=== PATIENT | female | born 1955 | race Caucasian/White ===

== ENCOUNTER → 2023-11-27 11:57 | Outpatient (REF) | payer MEDICARE, SELFPAY | LOC: RCS 11:57 | PROVIDERS: ATTENDING PHYSICIAN Internal Medicine Cardiovascular Disease; FAMILY PHYSICIAN Internal Medicine | DX: I35.0 Nonrheumatic aortic (valve) stenosis (principal) | CPT/HCPCS: 93306 ==

== ENCOUNTER 2023-12-30 08:30 | Emergency (ER) | payer MEDICARE, SELFPAY ==
[2023-12-30 08:37] VITALS: BP 147/80
--- NOTE | 2023-12-30 08:53 | ED.GENMED ---
History of Present Illness
General
Chief Complaint: Abdominal Symptoms
Source: patient
Exam Limitations: none
Time Seen by Provider: 12/30/23 08:41
History of Present Illness
History of Present Illness:
68-year-old female presents with nausea vomiting abdominal pain and diarrhea starting yesterday worsening throughout the night. Last several episodes of loose stool she noted were bloody with red blood and mucus. No recent antibiotics. She has a
history of colitis. This feels somewhat similar. She denies chest pain but shortness of breath. No urinary symptoms. No known sick contacts. Recently has seen her GI doctor and cardiology. She has a history of rjp-[id number]-ijiuccxxc diabetes
Past History
Past History
ED Past Medical History: HTN, Hypercholesterolemia, NIDDM and Hypothyroidism
Social History
Tobacco: Non-smoker
Alcohol: None
Drug: None
Personal:
Living: with family
Employment: Retired
Phy Exam
Physical Exam
Physical Exam:
General: Well-appearing female no acute respiratory distress
HEENT: Normocephalic atraumatic
Heart: Regular rate and rhythm no murmurs
Lungs: Clear no wheeze
Abdomen soft mildly tender to the lower abdomen
Extremities: No cyanosis
Course
Orders/Labs/Results
Orders:
Orders
12/30/23 08:51
STOOL [C difficile Antigen & Toxins] Urgent
QING Source: Feces/Stool
Specimen Description:
Stool Culture Urgent
QING Source: Feces/Stool
Specimen Description:
0.9% Sodium Chloride 1000 ml [Nss] 1,000 ml IV BOLUS
Ondansetron Injectable [Zofran] 4 mg IV NOW STA
12/30/23 08:52
CT Abd/pelvis W Iv Cont Urgent
Comment:
Reason For Exam: lower abodminal pain, diarrhea
12/30/23 09:00
Complete Blood Count/With Diff Urgent
Comprehensive Metabolic Panel Urgent
Lipase Urgent
Abnormal Lab Results
12/30/23
09:00
Absolute Neuts (auto) 7.3 H 10^3/uL
(1.4-6.5)
Absolute Monos (auto) 0.7 H 10^3/uL
(0.1-0.6)
Lymphocytes % 19.6 L %
(20.5-51.1)
BUN 24 H mg/dl
(7-17)
12/30/23 09:00
12/30/23 09:00
Vital Signs
Initial and Last Documented VS:
Initial Vital Signs
Temp Pulse Resp BP Pulse Ox
98.0 F 89 16 147/80 98
12/30/23 08:37 12/30/23 08:37 12/30/23 08:37 12/30/23 08:37 12/30/23 08:37
Last Documented Vital Signs
Temp Pulse Resp BP Pulse Ox
98.0 F 89 16 135/70 98
12/30/23 08:37 12/30/23 08:37 12/30/23 08:37 12/30/23 10:34 12/30/23 08:37
MDM/Problems Addressed
Differential Diagnosis Includes:
Abdominal pain nausea vomiting diarrhea. She notes bloody stool as well. Stool cultures ordered. Considered colitis versus diverticular bleed versus viral illness.
Check labs. Hydrate give Zofran for symptoms. CT pending
*Critical Care Note
Total Time (30-74mins, 75-104mins- exclusive of procedures): Not Applicable
Update Note
Update Note:
Update. CT shows mild colitis. Patient's lab work is reviewed without significant finding no electrolyte abnormality normal white count. Will treat for colitis with antibiotics. No indication for admission. Discussed with attending
ED Attending Note
-
Portions of this chart may have been created with voice recognition software.� Occasional wrong word or��sound alike� substitutions may have occurred due to the inherent limitations of voice recognition software.
Discharge Plan
Departure
Patient Disposition: Home (Routine Discharge)
Date of Disposition: 12/30/23
Time of Disposition: 11:45
Patient with high blood pressure during this ER visit?: No
Discharge Problem:
Colitis
Instructions: Colitis
Prescriptions:
New
amoxicillin-pot clavulanate 875-125 mg tablet
1 tab PO BID Qty: 20 0RF
No Action
metformin 500 mg Tablet
500 mg PO BID
atorvastatin 10 mg tablet
10 mg PO DAILY
lisinopril 20 mg tablet
20 mg PO DAILY
levothyroxine 25 mcg tablet
25 mcg PO DAILY
verapamil 240 mg Tablet Extended Release
240 mg PO DAILY
garlic 100 mg Tablet
100 mg PO TID
zinc gluconate 50 mg Tablet
50 mg PO DAILY
berberine-herbal comb no.18 Capsule
1 cap PO DAILY
cholecalciferol (vitamin D3) [Vitamin D3] 25 mcg (1,000 unit) Tablet
25 mcg PO DAILY
Visbiome 112.5 billion cell Capsule
1 cap PO DAILY
coQ10 (ubiquinol) 100 mg Capsule
100 mg PO DAILY
omega 1-rag-elw-fish oil [Fish Oil] 1,000 mg (120 mg-180 mg) Capsule
2 cap PO DAILY
metronidazole 250 mg tablet
250 mg PO Q8H Qty: 14 0RF
levofloxacin 500 mg tablet
500 mg PO DAILY Qty: 7 0RF
Referrals:
Gabriela Garrido MD [Family Provider] -
Activity Restrictions/Additional Instructions:
Drink plenty of fluids. Eat a bland diet. Take antibiotics as directed peer return if worse otherwise follow-up with your doctor or GI
Interventions
Interventions:
*Risk Screen - Suicide Last Done: 12/30/23 08:37
*General Assessment Last Done: 12/30/23 08:56
*Neglect/Abuse Screening Last Done: 12/30/23 08:37
ED- Fall Risk Assessment Last Done: 12/30/23 08:56
*ED COVID-19 Vaccine History Last Done: 12/30/23 08:56
TJ-Xvkfom-Bpktgugvdw Assessment Last Done: 12/30/23 08:56
Discharge Date and Time
Print Language: SAMOAN
[2023-12-30 08:56] VITALS: BMI 35.4
[2023-12-30] MEDS: NSS 1000 IV (09:06)
[2023-12-30] MEDS: ZOFRAN 4 MG IV (09:06)
[2023-12-30 09:10] VITALS: BP 134/68
[2023-12-30 09:16] LABS: % Basophils 0.3 % (0-2); % Eosinophils 0.4 % (0-6); % Immature Granulocytes 0.3 % (0-0.5); % Lymphocytes 19.6 % (20.5-51.1); % Monocytes 6.7 % (1.7-9.3); % Neutrophils 72.7 % (42.2-75.2); Absolute Monocytes 0.7 10^3/uL (0.1-0.6); Absolute Neutrophils 7.3 10^3/uL (1.4-6.5); Hematocrit 37.1 % (37.0-47.0); Hemoglobin 12.5 g/dL (12.0-16.0); Mean Corp Hgb Conc. 33.7 g/dL (33.0-37.0); Mean Corpuscular Hgb 29.3 pg (27.0-31.0); Mean Corpuscular Volume 87.1 fL (81.0-99.0); Mean Platelet Volume 8.6 fL (7.4-10.4); Nucleated Red Blood Cells % 0 %; Platelet Count 320 10^3/uL (130-400); Red Blood Cell Count 4.26 10^6/uL (4.20-5.40); Red Cell Dist. Width 13.1 % (11.5-14.5); White Blood Cell Count 10.1 10^3/uL (4.8-10.8)
[2023-12-30 09:32] LABS: ALT (SGPT) 15 U/L (0-35); AST (SGOT) 21 U/L (14-36); Albumin 4.4 g/dl (3.5-5.0); Alkaline Phosphatase 61 U/L (38-126); Blood Urea Nitrogen 24 mg/dl (7-17); Calcium 10.1 mg/dl (8.4-10.2); Carbon Dioxide 24 mmol/L (22-30); Chloride 103 mmol/L (98-107); Estimated Creatinine Clearance 62 ml/min; Glucose 98 mg/dl (70-99); Lipase 42 U/L (23-300); Potassium 4.3 mmol/L (3.5-5.1); Sodium 140 mmol/L (135-145); Total Bilirubin 0.7 mg/dl (0.2-1.3); eGFR > 60.00
[2023-12-30 10:34] VITALS: BP 135/70
== END 2023-12-30 12:05 | disposition home or self-care (01) ==
LOC: EMR 08:30
PROVIDERS: Physician Assistant; EMERGENCY PHYSICIAN Emergency Medicine; FAMILY PHYSICIAN Internal Medicine
DX: K52.9 Noninfective gastroenteritis and colitis, unspecified (principal); I10 Essential (primary) hypertension; E78.00 Pure hypercholesterolemia, unspecified; E11.9 Type 2 diabetes mellitus without complications; E03.9 Hypothyroidism, unspecified
CPT/HCPCS: 96374; 96361; 99284; 74177; 80053; 83690; 85025; Q9967

== ENCOUNTER → 2024-12-22 09:13 | Outpatient (REF) | payer MEDICARE, SELFPAY | LOC: RCS 09:13 | PROVIDERS: ATTENDING PHYSICIAN Internal Medicine Cardiovascular Disease; FAMILY PHYSICIAN Internal Medicine | DX: I10 Essential (primary) hypertension (principal); E78.2 Mixed hyperlipidemia; I35.0 Nonrheumatic aortic (valve) stenosis; I77.810 Thoracic aortic ectasia | CPT/HCPCS: 93306 ==